=== PATIENT | female | born 1985 | race Caucasian/White ===

== ENCOUNTER → 2018-09-13 10:23 | Outpatient (CLI) | payer OTHER, MEDICAID, SELFPAY ==
[2018-09-13 10:52] LABS: Add Manual Diff / Slide Review NO; Basophils Percent Auto 0.8 % (0-2); Eosinophils Percent Auto 1.2 % (2-4); Hematocrit 39.5 % (36-46); Hemoglobin 13.3 g/dL (12.0-16.0); Lymphocytes Percent Auto 24.6 % (25-40); Mean Corpuscular HGB Conc 33.8 % (30-36); Mean Corpuscular Hemoglobin 28.9 PG (26-34); Mean Corpuscular Volume 85.5 fL (80-100); Monocytes Percent Auto 4.8 % (3-14); Neutrophils Absolute Auto 4000 /uL (3000-5900); Neutrophils Percent Auto 68.6 % (50-75); Platelet Count 342 X10^3/uL (150-400); Red Blood Cell Count 4.61 X10^6/uL (4.0-5.2); White Blood Cell Count 5.8 X10^3/uL (4.5-11.0)
[2018-09-13 11:19] LABS: HEMOLYSIS < 15 (0-50); Iron 105 ug/dL (37-170)
[2018-09-13 11:29] LABS: Alanine Aminotransferase 76 IU/L (9-52); Albumin 4.5 g/dL (3.5-5.0); Albumin Globulin Ratio 1.5 (1.0-2.8); Alkaline Phosphatase 58 U/L (38-126); Aspartate Aminotransferase 86 IU/L (14-36); BUN Creatinine Ratio 22.5 (6-22); Bilirubin Total 0.6 mg/dL (0.2-1.3); Blood Urea Nitrogen 18 mg/dL (7-17); Calcium 9.4 mg/dL (8.4-10.2); Carbon Dioxide 27 mmol/L (22-32); Chloride 105 mmol/L (98-107); Estimated Glomerular Filt Rate > 60.0 mL/min (>60); Glucose 90 mg/dL (70-100); HEMOLYSIS < 15 (0-50); Potassium 4.6 mmol/L (3.4-5.1); Sodium 143 mmol/L (137-145); Total Protein 7.5 g/dL (6.3-8.2)
[2018-09-13 11:31] LABS: Percent Iron Saturation 28 % (15-50); Total Iron Binding Capacity 381 ug/dL (265-497); Transferrin 309 mg/dL (206-381)
[2018-09-13 11:40] LABS: Free T3, Triiodothyronine Free 2.59 pg/mL (2.77-5.27); Free T4, Direct Thyroxine 0.92 ng/dL (0.78-2.19)
[2018-09-13 11:53] LABS: Thyroid Stimulating Hormone 1.06 uIU/mL (0.47-4.68)
[2018-09-13 12:00] LABS: Ferritin 14.2 ng/mL (6.27-137)
[2018-09-13 12:55] LABS: Vitamin B12 736 pg/mL (239-931)
== END ==
PROVIDERS: PCP Physician Assistant; Visit Provider Physician Assistant
DX: D50.9 Iron deficiency anemia, unspecified (principal); R53.83 Other fatigue
CPT/HCPCS: 36415; 80053; 82607; 82728; 83540; 83550; 84439; 84443; 84481; 85025

== ENCOUNTER → 2018-10-13 20:54 | Outpatient (CLI) | payer OTHER, MEDICAID, SELFPAY | PROVIDERS: PCP Physician Assistant; Visit Provider Physician Assistant | DX: Z20.2 Contact with and (suspected) exposure to infections with a predominantly sexual mode of transmission (principal) | CPT/HCPCS: 87210; 87491; 87591 ==

== ENCOUNTER → 2018-10-20 14:40 | Outpatient (CLI) | payer OTHER, MEDICAID, SELFPAY | PROVIDERS: PCP Physician Assistant; Visit Provider Physician Assistant | DX: K92.1 Melena (principal); R19.7 Diarrhea, unspecified | CPT/HCPCS: 87015; 87045; 87427; 87493; 87899 ==

== ENCOUNTER → 2018-10-22 12:41 | Outpatient (CLI) | payer OTHER, MEDICAID, SELFPAY | PROVIDERS: PCP Physician Assistant; Visit Provider Physician Assistant | DX: Z13.9 Encounter for screening, unspecified (principal) ==

== ENCOUNTER → 2019-07-29 15:55 | Outpatient (CLI) | payer OTHER, MEDICAID, SELFPAY ==
[2019-07-29 20:01] LABS: Urine N gonorrhoeae NOT DETECTED
[2019-07-29 20:18] LABS: Urine Chlamydia NOT DETECTED
== END ==
PROVIDERS: PCP Physician Assistant; Visit Provider Registered Nurse
DX: Z11.3 Encounter for screening for infections with a predominantly sexual mode of transmission (principal)
CPT/HCPCS: 87491; 87591

== ENCOUNTER → 2020-09-14 10:46 | Outpatient (CLI) | payer OTHER, SELFPAY ==
--- NOTE | 2020-09-14 10:47 | DI.US.S_ITS ---
PROCEDURE: US PELVIC COMPLETE INDICATIONS: iud device; hirustism/hormonal change? TECHNIQUE: Real-time scanning was performed of the pelvic organs, with image documentation. Additional endovaginal scanning was necessary due to incomplete visualization of the adnexal and endometrial structures by transabdominal scanning. COMPARISON: None. FINDINGS: Transabdominal scanning: Limited scanning through the kidneys shows no hydronephrosis. No pathologic free abdominal or pelvic fluid. Endovaginal scanning: Uterus: Uterus is normal in size at 9.7 x 4.9 x 6.4 cm. The endometrium measures 5 mm in combined thickness. An IUD is seen at its expected location. Ovaries: The right ovary measures 3.7 x 3.1 x 3.2 cm. The left ovary measures 3.2 x 1.9 x 1.9 cm. The ovaries have a normal sonographic appearance. No adnexal masses are seen. A normal appearing arterial waveform is confirmed to the left ovary. IMPRESSION: Normal appearing IUD. No significant ovarian abnormality is seen. Dictated by: Oziel Morales M.D. on 09/14/2020 at 10:54 Approved by: Oziel Morales M.D. on 09/14/2020 at 10:57
== END ==
PROVIDERS: PCP Registered Nurse; Referring Provider Registered Nurse; Visit Provider Registered Nurse
DX: L68.0 Hirsutism (principal); Z97.5 Presence of (intrauterine) contraceptive device
CPT/HCPCS: 76830; 76856

== ENCOUNTER → 2020-09-21 13:43 | Outpatient (CLI) | payer OTHER, SELFPAY ==
[2020-09-21 14:43] LABS: Cholesterol 165 mg/dL (140-199); HDL Cholesterol 56 mg/dL (40-60); LDL Cholesterol Calculated 81 mg/dL (<100); Triglycerides 138 mg/dL (35-150)
[2020-09-22 07:08] LABS: RPR Screen Non Reactive (Non Reactive)
[2020-09-22 09:10] LABS: HBsAg Screen Negative (Negative); Hepatitis A Antibody IgM Negative (Negative); Hepatitis B Core Antibody IgM Negative (Negative); Hepatitis C Antibody <0.1 s/co ratio (0.0-0.9)
[2020-09-23 17:23] LABS: HIV 1 & 2 Ab/Ag 4th Gen Combo NEGATIVE (NEGATIVE)
== END ==
PROVIDERS: PCP Registered Nurse; Referring Provider Registered Nurse; Visit Provider Registered Nurse
DX: Z00.00 Encounter for general adult medical examination without abnormal findings (principal); Z11.3 Encounter for screening for infections with a predominantly sexual mode of transmission; Z30.40 Encounter for surveillance of contraceptives, unspecified; Z82.49 Family history of ischemic heart disease and other diseases of the circulatory system
CPT/HCPCS: 36415; 80061; 80074; 86592; 86696; 87389

== ENCOUNTER → 2020-10-24 17:02 | Outpatient (CLI) | payer OTHER, SELFPAY ==
[2020-10-24 17:40] LABS: COVID19 -Nasal RAPID Negative (Negative)
== END ==
PROVIDERS: PCP Registered Nurse; Visit Provider Student in an Organized Health Care Education/Training Program
DX: Z11.59 Encounter for screening for other viral diseases (principal)
CPT/HCPCS: 87635

== ENCOUNTER → 2022-11-18 14:19 | Outpatient (ROUT) | payer SELFPAY | PROVIDERS: Visit Provider Dermatology | DX: E65 Localized adiposity (principal) | CPT/HCPCS: 87070; 87075; 87077; 87147; 87185; 87186; 87205 ==

== ENCOUNTER → 2023-02-24 17:06 | Outpatient (ROUT) | payer OTHER, SELFPAY | PROVIDERS: Visit Provider Dermatology | DX: T81.89XA Other complications of procedures, not elsewhere classified, initial encounter (principal) | CPT/HCPCS: 87070; 87075; 87077; 87147; 87186; 87205 ==

== ENCOUNTER 2024-11-28 06:04 | Observation (INO) | payer BC, SELFPAY ==
[2024-11-28] VITALS (17 sets, daily range): BP systolic 97–137; BP diastolic 54–79; PULSE 57–102; RESP 12–21; TEMP 36.1–37.4; O2SAT 95–100; BMI 30.1
--- NOTE | 2024-11-28 | PATH_ITS ---
[facility] Accession Number: [id number] No. of containers..01 Tissue . 01 Material submitted: . appendix - APPENDIX . 01 Diagnosis: APPENDIX, APPENDECTOMY: Acute appendicitis with serositis. No evidence of neoplasm. [facility] 12/02/2024 1035 Local . 01 Electronically signed: . Gabriel Tony MD, PhD, Pathologist NPI- [id number] . 01 Gross description: . Received in formalin with two patient identifiers and appendix, is a fuentes, vermiform appendix, 6.6 cm in length by 0.9 cm in diameter, with fuentes, roughened serosa with adherent material consistent with exudate. The mesoappendix extends out to 2.9 cm. The margin is inked blue, and sectioning reveals a patent lumen filled with brown semisolid material that ranges from 0.3-0.6 cm in diameter. The pérez average 0.2 cm thick with no perforation or lesions identified. Lunchroom Monitor sections to include one-half of the bisected distal tip, margin, and cross section are submitted in A1. ([id number]) /MRV 12/01/2024 1526 Local . 01 Pathologist provided ICD-10: K35.80 . 01 CPT . 950712 Performed at: [address], [place], [place] [id number] MD Abel Miller MD Phone: [phone]
--- NOTE | 2024-11-28 06:24 | ED_ITS ---
HPI - Abdominal Pain <Judi Cox DO - Last Filed: 11/29/24 04:28> General Chief Complaint: Abdominal Pain Stated Complaint: abd pain Time Seen by Provider: 11/28/24 06:24 Source: patient, RN notes reviewed and old records reviewed Mode of arrival: Ambulatory Limitations: no limitations History of Present Illness HPI narrative: 39-year-old female presents with complaint of abdominal pain which he describes more suprapubic and right lower quadrant. Patient is started he had symptoms yesterday morning. States she ate some food started to have some nausea vomiting and cramping threw up several times developed persistent abdominal pain that is sort of waxed and waned in intensity. Has not had any persistent vomiting today. No fevers. She has had some nausea but no persistent vomiting. She states she did have 3 bowel movements earlier yesterday that were formed. Patient states no black or bloody stools. No dysuria, urgency or frequency. Denies any vaginal bleeding or discharge. Does note she has not IUD in place. Patient states she was not sexually active. Patient states no daily prescription medications. Denies any abdominal surgeries. Allergic to sulfa. Former smoker. No regular alcohol, no recreational drugs. Related Data Home Medications Medication Instructions Recorded Confirmed No Known Home Medications 11/28/24 11/28/24 Allergies Allergy/AdvReac Type Severity Reaction Status Date / Time Sulfa (Sulfonamide Allergy Mild HIVES Verified 11/28/24 06:15 Antibiotics) [SULFA (SULFONAMIDE ANTIBIOTICS)] egg [EGG] AdvReac Intermediate RINGING Verified 11/28/24 06:15 IN MY EARS, STAPH INFECTION Review of Systems <Judi Cox DO - Last Filed: 11/29/24 04:28> Review of Systems ROS Unobtainable: All systems reviewed & are unremarkable except as noted in HPI and below Patient History <Judi Cox DO - Last Filed: 11/29/24 04:28> Medical History Gestational diabetes Family History Father Age: 76 Type II diabetes mellitus Atrial fibrillation Mother Age: 68 Asthma Sister No problems noted. Sister No problems noted. Social History household members: family Smoking Status: Former smoker Tobacco: How many years used: 5 second hand exposure: No alcohol intake: current substance use type: marijuana Smoking Status: Former smoker Exam <Judi Cox DO - Last Filed: 11/29/24 04:28> Narrative Exam Narrative: GENERAL: Alert and oriented x three, female in mild distress HEENT: Head normocephalic, atraumatic, EOMI, pupils reactive, face symmetric, moist mucous membranes NECK: Supple, full range of motion CARDIOVASCULAR: Regular rate and rhythm without murmurs, rubs or gallops. RESPIRATORY: Breath sounds equal bilaterally, no wheezes rales or rhonchi. ABDOMEN: Soft, patient has suprapubic tenderness with some very mild right lower quadrant tenderness. Normoactive bowel sounds all 4 quadrants. No guarding or rebound, rigidity, no mass : No CVA tenderness bilaterally EXTREMITIES: Normal range of motion, no clubbing or edema. Neurovascularly intact NEUROLOGICAL: Cranial nerves II through XII grossly intact. Moving all extremities SKIN: Warm, dry, no petechiae, no rashes or lesions. Initial Vital Signs Initial Vital Signs: Vital Signs Temperature 98.0 F 11/28/24 06:12 Pulse Rate 65 11/28/24 06:12 Respiratory Rate 16 11/28/24 06:12 Blood Pressure 137/73 11/28/24 06:12 Pulse Oximetry 98 11/28/24 06:12 Oxygen Delivery Method Room Air 11/28/24 06:12 <Nya Hernandez DO - Last Filed: 11/28/24 09:56> Initial Vital Signs Initial Vital Signs: Vital Signs Temperature 98.0 F 11/28/24 06:12 Pulse Rate 65 11/28/24 06:12 Respiratory Rate 16 11/28/24 06:12 Blood Pressure 137/73 11/28/24 06:12 Pulse Oximetry 98 11/28/24 06:12 Oxygen Delivery Method Room Air 11/28/24 06:12 Course <Judi Cox DO - Last Filed: 11/29/24 04:28> Orders Ordered: Acetaminophen (Acetaminophen 325 Mg Tablet) 650 mg PO Q6H PRN PRN Reason: Fever/Mild Pain (1-3) Hydrocodone Bitart/Acetaminophen (Hydrocodone/Acet 5/325 Tablet) 1 tab PO Q4H PRN PRN Reason: Pain, Moderate (4-6) Hydrocodone Bitart/Acetaminophen (Hydrocodone/Acet 5/325 Tablet) 2 tab PO Q4H PRN PRN Reason: Pain, Severe (7-10) Fentanyl (Fentanyl 100 Mcg/2 Ml Inj) 0 mcg IV Q5MIN PRN PRN Reason: Pain, Severe (7-10) Fentanyl (Fentanyl 100 Mcg/2 Ml Inj) 0 mcg IV Q5M PRN PRN Reason: Pain, Moderate (4-6) Hydromorphone HCl (Hydromorphone 0.5 Mg Inj) 0.5 mg IV Q2H PRN PRN Reason: Pain, Severe (7-10) Last Admin: 11/28/24 12:17 Dose: 0.5 mg Documented By: TRINH Hydromorphone HCl (Hydromorphone 1 Mg Inj) 0 mg IV Q5MIN PRN PRN Reason: Pain, Mild (1-3) Hydroxyzine HCl (Hydroxyzine 50 Mg/Ml Inj) 25 mg IM NOW PRN PRN Reason: Pain, Mild (1-3) Piperacillin Sod/Tazobactam (Sod 3.375 gm/ Sodium Chloride) 100 mls @ 25 mls/hr IV Q8H [facility] Last Admin: 11/29/24 00:20 Dose: 25 mls/hr Documented By: Infusion: 11/28/24 20:14 Dose: Infused Documented By: Admin: 11/28/24 17:10 Dose: 25 mls/hr Documented By: TRINH Sodium Chloride (Normal Saline 0.9%) 1,000 mls @ 100 mls/hr IV CONT [facility] Last Admin: 11/28/24 13:36 Dose: 100 mls/hr Documented By: TRINH Ibuprofen (Ibuprofen 600 Mg Tablet) 600 mg PO Q6H PRN PRN Reason: Fever/Mild Pain (1-3) Meperidine HCl (Meperidine 50 Mg/Ml Inj) 12.5 mg IV PACUNOW PRN PRN Reason: Mild pain or shivering Last Admin: 11/28/24 20:10 Dose: 12.5 mg Documented By: Naloxone HCl (Naloxone 0.4 Mg/Ml Vial) 0.2 mg IV Q2MIN PRN PRN Reason: Opiate Reversal Ondansetron HCl (Ondansetron 4 Mg/2 Ml Inj) 4 mg IV NOW PRN PRN Reason: Nausea And Vomiting Last Admin: 11/28/24 12:24 Dose: 4 mg Documented By: Admin: 11/28/24 06:45 Dose: 4 mg Documented By: DALILA Ondansetron HCl (Ondansetron 4 Mg/2 Ml Inj) 4 mg IV Q8HR PRN PRN Reason: Nausea And Vomiting Ondansetron HCl (Ondansetron 4 Mg/2 Ml Inj) 4 mg IV NOW PRN PRN Reason: Nausea And Vomiting Oxycodone HCl (Oxycodone Ir 5 Mg Tablet) 5 mg PO PACUNOW PRN PRN Reason: Mild or moderate pain Discontinued Medications Bupivacaine HCl/Epinephrine Bitart (Bupivacaine 0.5% W/ Epi (Pf) 30 Ml Vial) 30 ml INJ NOW ONE Stop: 11/28/24 19:32 Last Admin: 11/28/24 19:32 Dose: 30 ml Documented By: Piperacillin Sod/Tazobactam (Sod 4.5 gm/ Sodium Chloride) 100 mls @ 200 mls/hr IV NOW ONE Stop: 11/28/24 08:41 Last Infusion: 11/28/24 09:40 Dose: Infused Documented By: Admin: 11/28/24 09:03 Dose: 200 mls/hr Documented By: AURA Lactated Ringer's (Lactated Ringers) 1,000 mls @ 100 mls/hr IV CONT [facility] Last Admin: 11/28/24 19:49 Dose: 100 mls/hr Documented By: Admin: 11/28/24 13:37 Dose: Not Given Documented By: TRINH Piperacillin Sod/Tazobactam (Sod 3.375 gm/ Sodium Chloride) 100 mls @ 25 mls/hr IV Q8H [facility] Last Admin: 11/28/24 13:37 Dose: Not Given Documented By: TRINH Ketorolac Tromethamine (Ketorolac 30 Mg/Ml Vial) 15 mg IV NOW ONE Stop: 11/28/24 06:38 Last Admin: 11/28/24 06:45 Dose: 15 mg Documented By: DALILA Meperidine HCl (Meperidine 50 Mg/Ml Inj) 25 mg IV Q4H PRN PRN Reason: Pain, Severe (7-10) Ondansetron HCl (Ondansetron 4 Mg Odt) 4 mg PO NOW PRN PRN Reason: Nausea And Vomiting Vital Signs Vital signs: Vital Signs - 8 hr 11/28/24 06:12 Temperature 98.0 F Pulse Rate 65 Respiratory Rate 16 Blood Pressure 137/73 Pulse Oximetry 98 Oxygen Delivery Method Room Air <Nya DO David - Last Filed: 11/28/24 09:56> Orders Ordered: Acetaminophen (Acetaminophen 325 Mg Tablet) 650 mg PO Q6H PRN PRN Reason: Fever/Mild Pain (1-3) Hydrocodone Bitart/Acetaminophen (Hydrocodone/Acet 5/325 Tablet) 1 tab PO Q4H PRN PRN Reason: Pain, Moderate (4-6) Hydrocodone Bitart/Acetaminophen (Hydrocodone/Acet 5/325 Tablet) 2 tab PO Q4H PRN PRN Reason: Pain, Severe (7-10) Fentanyl (Fentanyl 100 Mcg/2 Ml Inj) 0 mcg IV Q5MIN PRN PRN Reason: Pain, Severe (7-10) Fentanyl (Fentanyl 100 Mcg/2 Ml Inj) 0 mcg IV Q5M PRN PRN Reason: Pain, Moderate (4-6) Hydromorphone HCl (Hydromorphone 0.5 Mg Inj) 0.5 mg IV Q2H PRN PRN Reason: Pain, Severe (7-10) Last Admin: 11/28/24 12:17 Dose: 0.5 mg Documented By: TRINH Hydromorphone HCl (Hydromorphone 1 Mg Inj) 0 mg IV Q5MIN PRN PRN Reason: Pain, Mild (1-3) Hydroxyzine HCl (Hydroxyzine 50 Mg/Ml Inj) 25 mg IM NOW PRN PRN Reason: Pain, Mild (1-3) Piperacillin Sod/Tazobactam (Sod 3.375 gm/ Sodium Chloride) 100 mls @ 25 mls/hr IV Q8H [facility] Last Admin: 11/29/24 00:20 Dose: 25 mls/hr Documented By: Infusion: 11/28/24 20:14 Dose: Infused Documented By: Admin: 11/28/24 17:10 Dose: 25 mls/hr Documented By: TRINH Sodium Chloride (Normal Saline 0.9%) 1,000 mls @ 100 mls/hr IV CONT [facility] Last Admin: 11/28/24 13:36 Dose: 100 mls/hr Documented By: TRINH Ibuprofen (Ibuprofen 600 Mg Tablet) 600 mg PO Q6H PRN PRN Reason: Fever/Mild Pain (1-3) Meperidine HCl (Meperidine 50 Mg/Ml Inj) 12.5 mg IV PACUNOW PRN PRN Reason: Mild pain or shivering Last Admin: 11/28/24 20:10 Dose: 12.5 mg Documented By: YI Naloxone HCl (Naloxone 0.4 Mg/Ml Vial) 0.2 mg IV Q2MIN PRN PRN Reason: Opiate Reversal Ondansetron HCl (Ondansetron 4 Mg/2 Ml Inj) 4 mg IV NOW PRN PRN Reason: Nausea And Vomiting Last Admin: 11/28/24 12:24 Dose: 4 mg Documented By: Admin: 11/28/24 06:45 Dose: 4 mg Documented By: DALILA Ondansetron HCl (Ondansetron 4 Mg/2 Ml Inj) 4 mg IV Q8HR PRN PRN Reason: Nausea And Vomiting Ondansetron HCl (Ondansetron 4 Mg/2 Ml Inj) 4 mg IV NOW PRN PRN Reason: Nausea And Vomiting Oxycodone HCl (Oxycodone Ir 5 Mg Tablet) 5 mg PO PACUNOW PRN PRN Reason: Mild or moderate pain Discontinued Medications Bupivacaine HCl/Epinephrine Bitart (Bupivacaine 0.5% W/ Epi (Pf) 30 Ml Vial) 30 ml INJ NOW ONE Stop: 11/28/24 19:32 Last Admin: 11/28/24 19:32 Dose: 30 ml Documented By: Piperacillin Sod/Tazobactam (Sod 4.5 gm/ Sodium Chloride) 100 mls @ 200 mls/hr IV NOW ONE Stop: 11/28/24 08:41 Last Infusion: 11/28/24 09:40 Dose: Infused Documented By: Admin: 11/28/24 09:03 Dose: 200 mls/hr Documented By: AURA Lactated Ringer's (Lactated Ringers) 1,000 mls @ 100 mls/hr IV CONT [facility] Last Admin: 11/28/24 19:49 Dose: 100 mls/hr Documented By: Admin: 11/28/24 13:37 Dose: Not Given Documented By: TRINH Piperacillin Sod/Tazobactam (Sod 3.375 gm/ Sodium Chloride) 100 mls @ 25 mls/hr IV Q8H [facility] Last Admin: 11/28/24 13:37 Dose: Not Given Documented By: TRINH Ketorolac Tromethamine (Ketorolac 30 Mg/Ml Vial) 15 mg IV NOW ONE Stop: 11/28/24 06:38 Last Admin: 11/28/24 06:45 Dose: 15 mg Documented By: DALILA Meperidine HCl (Meperidine 50 Mg/Ml Inj) 25 mg IV Q4H PRN PRN Reason: Pain, Severe (7-10) Ondansetron HCl (Ondansetron 4 Mg Odt) 4 mg PO NOW PRN PRN Reason: Nausea And Vomiting Vital Signs Vital signs: Vital Signs - 8 hr 11/28/24 06:12 Temperature 98.0 F Pulse Rate 65 Respiratory Rate 16 Blood Pressure 137/73 Pulse Oximetry 98 Oxygen Delivery Method Room Air MDM - Abdominal Pain <Judi Cox, - Last Filed: 11/29/24 04:28> Lab Data 11/28/24 06:25 11/28/24 06:25 Labs: Lab Results 11/28/24 Range/Units 06:25 WBC 18.3 H (4.5-11.0) X10^3/uL RBC 4.69 (4.0-5.2) X10^6/uL Hgb 14.1 (12.0-16.0) g/dL Hct 40.9 (36-46) % MCV 87.2 (80-100) fL MCH 30.0 (26-34) PG MCHC 34.4 (30-36) % RDW 13.2 (11.6-14.8) % Plt Count 282 (150-400) X10^3/uL Neut % (Auto) 88.1 H (50-75) % Lymph % (Auto) 6.7 L (25-40) % Ellis % (Auto) 4.6 (3-14) % Eos % (Auto) 0.3 L (2-4) % Baso % (Auto) 0.3 (0-2) % Neut # (Auto) 12936 H (8612-7704) /uL Lymph # (Auto) 1200 (3923-7869) /uL Ellis # (Auto) 800 (0-900) /uL Eos # (Auto) 100 (0-450) /uL Baso # (Auto) 0 (0-100) /uL Sodium 135 L (137-145) mmol/L Potassium 3.9 (3.4-5.1) mmol/L Chloride 105 (98-107) mmol/L Carbon Dioxide 21 L (22-32) mmol/L BUN 8 (7-17) mg/dL Creatinine 0.71 (0.52-1.04) mg/dL Estimated GFR > 60 (>60) mL/min BUN/Creatinine Ratio 11.3 (6-22) Glucose 116 H (70-100) mg/dL Calcium 9.0 (8.4-10.2) mg/dL Total Bilirubin 0.7 (0.2-1.3) mg/dL AST 54 H (14-36) IU/L ALT 131 H (<35) IU/L Alkaline Phosphatase 94 (38-126) U/L Total Protein 7.7 (6.3-8.2) g/dL Albumin 4.5 (3.5-5.0) g/dL Globulin 3.2 (1.7-4.1) g/dL Albumin/Globulin Ratio 1.4 (1.0-2.8) Lipase 63 (23-300) U/L Point of care testing: Point of Care Testing Test Results Negative Urine Dip Bedside Urine Glucose Negative Bedside Urine Bilirubin - Negative Bedside Urine Ketone - Negative Urine Specific [place] 1.015 Bedside Urine Occult Blood +/- Bedside Urine pH 7.0 Bedside Urine Protein - Negative Bedside Urine Urobilinogen - Negative Bedside Urine Nitrite - Negative Bedside Urine Leukocytes - Negative Esterase MDM Narrative Medical decision making narrative: Overall well-appearing female has some very mild suprapubic tenderness and slight right lower quadrant on exam. Vitals are overall stable. Patient has a white count of 18.3 hemoglobin of 14 platelets of 282. CMP pending. Point of care urine and are negative. Pelvic ultrasound right lower quadrant ultrasound ordered. Patient received Toradol. Dr. Hernandez patient signed out to me by Dr. Cox I have seen evaluated patient myself. She does have some mild suprapubic tenderness but is doing better after Toradol. She is significant leukocytosis of 18.3. Ultrasound does show mild left ovarian cyst appendix not seen. Decision to do CT scan. CT confirms acute appendicitis. Dr. Mckeon updated patient's symptoms test results agrees to admission surgery will likely be early this evening agrees with [facility] <Nya David, DO - Last Filed: 11/28/24 09:56> Lab Data Labs: Lab Results 11/28/24 Range/Units 06:25 WBC 18.3 H (4.5-11.0) X10^3/uL RBC 4.69 (4.0-5.2) X10^6/uL Hgb 14.1 (12.0-16.0) g/dL Hct 40.9 (36-46) % MCV 87.2 (80-100) fL MCH 30.0 (26-34) PG MCHC 34.4 (30-36) % RDW 13.2 (11.6-14.8) % Plt Count 282 (150-400) X10^3/uL Neut % (Auto) 88.1 H (50-75) % Lymph % (Auto) 6.7 L (25-40) % Ellis % (Auto) 4.6 (3-14) % Eos % (Auto) 0.3 L (2-4) % Baso % (Auto) 0.3 (0-2) % Neut # (Auto) 47215 H (5823-1780) /uL Lymph # (Auto) 1200 (2300-8516) /uL Ellis # (Auto) 800 (0-900) /uL Eos # (Auto) 100 (0-450) /uL Baso # (Auto) 0 (0-100) /uL Sodium 135 L (137-145) mmol/L Potassium 3.9 (3.4-5.1) mmol/L Chloride 105 (98-107) mmol/L Carbon Dioxide 21 L (22-32) mmol/L BUN 8 (7-17) mg/dL Creatinine 0.71 (0.52-1.04) mg/dL Estimated GFR > 60 (>60) mL/min BUN/Creatinine Ratio 11.3 (6-22) Glucose 116 H (70-100) mg/dL Calcium 9.0 (8.4-10.2) mg/dL Total Bilirubin 0.7 (0.2-1.3) mg/dL AST 54 H (14-36) IU/L ALT 131 H (<35) IU/L Alkaline Phosphatase 94 (38-126) U/L Total Protein 7.7 (6.3-8.2) g/dL Albumin 4.5 (3.5-5.0) g/dL Globulin 3.2 (1.7-4.1) g/dL Albumin/Globulin Ratio 1.4 (1.0-2.8) Lipase 63 (23-300) U/L Point of care testing: Point of Care Testing Test Results Negative Urine Dip Bedside Urine Glucose Negative Bedside Urine Bilirubin - Negative Bedside Urine Ketone - Negative Urine Specific [place] 1.015 Bedside Urine Occult Blood +/- Bedside Urine pH 7.0 Bedside Urine Protein - Negative Bedside Urine Urobilinogen - Negative Bedside Urine Nitrite - Negative Bedside Urine Leukocytes - Negative Esterase Imaging Data CT scan - abdomen/pelvis: Radiologist's Impression: PROCEDURE: CT ABDOMEN PELVIS W CON INDICATIONS: lower ab pain with high wbx TECHNIQUE: After the administration of intravenous contrast, axial sections acquired from the lung bases to the pubic symphysis. Coronal and sagittal reformats were performed. For radiation dose reduction, the following was used: automated exposure control, adjustment of mA and/or kV according to patient size. COMPARISON: None. FINDINGS: Image quality: Diagnostic. Lower Chest: No significant findings. ABDOMEN: Liver: No solid mass. Gallbladder: No radiopaque gallstones or wall thickening. Biliary ducts: No biliary dilation. Pancreas: No ductal dilation. Spleen: Size is within normal limits. Adrenal Glands: No adrenal nodules. Kidneys and Ureters: No hydronephrosis. No solid mass. No complex renal cystic lesion which requires follow up. Stomach and Bowel: Normal colonic caliber, without significant wall thickening. Findings are suggestive of acute appendicitis. There is high density at the base. There is approximately 50% that has air within it, with an appearance consistent with likely feculent material. The 40% extending to the tip is fluid-filled and enhancing and dilated. Findings likely represent acute appendicitis. Peritoneum: No abnormal intraperitoneal fluid. No free air. Ventral Wall: No significant ventral hernia. Abdominal Nodes: No retroperitoneal or mesenteric adenopathy by size criteria. Vessels: Aorta and inferior vena cava are normal in size. PELVIS: Pelvic Organs: IUD in the uterus. Mild free pelvic fluid. Fluid may be physiologic.. Bladder: No bladder wall thickening, accounting for underdistention. Pelvic Nodes: No enlarged lymph nodes. Miscellaneous: No inguinal hernias are seen. Bones: No aggressive osseous abnormality. IMPRESSION: Findings likely represent acute appendicitis. Comment: Findings were discussed with Dr. Hernandez on 11/28/2024 at 0811 hours Dictated by: Дмитрий Lora M.D. on 11/28/2024 at 8:18 US - RECRUITMENT SPECIALIST: Radiologist's Impression: PROCEDURE: US PELVIC COMPLETE INDICATIONS: RLQ/suprapubic pain, ovarian torsion vs appy TECHNIQUE: Real-time scanning was performed of the pelvic organs, with image documentation. Additional endovaginal scanning was necessary due to incomplete visualization of the adnexal and endometrial structures by transabdominal scanning. COMPARISON: [facility], , US PELVIC COMPLETE, 09/14/2020, 10:57. FINDINGS: Uterus: Uterus is anteverted and normal in size at 10.4 x 5.2 x 6.1 cm. The myometrium is homogeneous. The endometrium measures 6.8 mm combined thickness. Intrauterine device in place. Ovaries: The right ovary measures 2.8 x 3.0 x 2.3 cm, with a calculated ovarian volume of 10.1 cc. The left ovary measures 3.2 x 3.2 x 2.2 cm, with a calculated ovarian volume of 11.8 cc. Simple left ovarian cyst measuring 2.6 x 1.8 x 2.3 cm. The ovaries have a normal sonographic appearance and normal vascularity. Less than 12 follicles can be seen in each ovary. No adnexal masses are seen. Other: No pathologic free abdominal or pelvic fluid. The appendix is not seen. IMPRESSION: Normal appearance of the uterus and ovaries. No cause for patient's pain is identified. The appendix is not seen. We strive to produce accurate, complete, and clear reports of imaging services. To assist us in improving patient care, this report was composed using standard report templates and voice recognition software. Therefore, it may contain abnormal punctuation, insertions and/or omissions. Occasional wrong-word or sound-alike substitutions may occur. Though we review the report and make efforts to correct it, we do recommend that the report be read carefully in proper context to recognize any text inaccuracies. Dictated by: Rk Kaminski M.D. on 11/28/2024 at 8:10 Approved by: Rk Kaminski M.D. on 11/28/2024 at 8:1 [facility] Narrative Medical decision making narrative: Overall well-appearing female has some very mild suprapubic tenderness and slight right lower quadrant on exam. Vitals are overall stable. Patient has a white count of 18.3 hemoglobin of 14 platelets of 282. CMP Point of care urine and are negative. Pelvic ultrasound right lower quadrant ultrasound Patient received Toradol Dr. Hernandez patient signed out to me by Dr. Cox I have seen evaluated patient myself. She does have some mild suprapubic tenderness but is doing better after Toradol. She is significant leukocytosis of 18.3. Ultrasound does show mild left ovarian cyst appendix not seen. Decision to do CT scan. CT confirms acute appendicitis. Dr. Mckeon updated patient's symptoms test results agrees to admission surgery will likely be early this evening agrees with [facility] Discharge Plan Departure Patient Disposition: Admitted as Observation Clinical Impression: Acute appendicitis Qualifiers: Acute appendicitis type: with localized peritonitis Appendicitis gangrene presence: without gangrene Appendicitis perforation presence: without perforation Appendicitis abscess presence: without abscess Qualified Code(s): K 35.30 - Acute appendicitis with localized peritonitis, without perforation or gangrene Admit Date/Time: 11/28/24 08:41 Admit Provider: Renaldo Mckeon
--- NOTE | 2024-11-28 06:37 | DI.US.S_ITS ---
PROCEDURE: US PELVIC COMPLETE INDICATIONS: RLQ/suprapubic pain, ovarian torsion vs appy TECHNIQUE: Real-time scanning was performed of the pelvic organs, with image documentation. Additional endovaginal scanning was necessary due to incomplete visualization of the adnexal and endometrial structures by transabdominal scanning. COMPARISON: [facility], , US PELVIC COMPLETE, 09/14/2020, 10:57. FINDINGS: Uterus: Uterus is anteverted and normal in size at 10.4 x 5.2 x 6.1 cm. The myometrium is homogeneous. The endometrium measures 6.8 mm combined thickness. Intrauterine device in place. Ovaries: The right ovary measures 2.8 x 3.0 x 2.3 cm, with a calculated ovarian volume of 10.1 cc. The left ovary measures 3.2 x 3.2 x 2.2 cm, with a calculated ovarian volume of 11.8 cc. Simple left ovarian cyst measuring 2.6 x 1.8 x 2.3 cm. The ovaries have a normal sonographic appearance and normal vascularity. Less than 12 follicles can be seen in each ovary. No adnexal masses are seen. Other: No pathologic free abdominal or pelvic fluid. The appendix is not seen. IMPRESSION: Normal appearance of the uterus and ovaries. No cause for patient's pain is identified. The appendix is not seen. We strive to produce accurate, complete, and clear reports of imaging services. To assist us in improving patient care, this report was composed using standard report templates and voice recognition software. Therefore, it may contain abnormal punctuation, insertions and/or omissions. Occasional wrong-word or sound-alike substitutions may occur. Though we review the report and make efforts to correct it, we do recommend that the report be read carefully in proper context to recognize any text inaccuracies. Dictated by: Rk Kaminski M.D. on 11/28/2024 at 8:10 Approved by: Rk Kaminski M.D. on 11/28/2024 at 8:12
[2024-11-28 06:39] LABS: Add Manual Diff / Slide Review NO; Basophils Absolute Auto 0 /uL (0-100); Basophils Percent Auto 0.3 % (0-2); Eosinophils Absolute Auto 100 /uL (0-450); Eosinophils Percent Auto 0.3 % (2-4); Hematocrit 40.9 % (36-46); Hemoglobin 14.1 g/dL (12.0-16.0); Lymphocytes Absolute Auto 1200 /uL (1100-4500); Lymphocytes Percent Auto 6.7 % (25-40); Mean Corpuscular HGB Conc 34.4 % (30-36); Mean Corpuscular Volume 87.2 fL (80-100); Monocytes Absolute Auto 800 /uL (0-900); Monocytes Percent Auto 4.6 % (3-14); Neutrophils Absolute Auto 16200 /uL (1500-7000); Neutrophils Percent Auto 88.1 % (50-75); Platelet Count 282 X10^3/uL (150-400); Red Blood Cell Count 4.69 X10^6/uL (4.0-5.2); Red Cell Distribution Width 13.2 % (11.6-14.8); White Blood Cell Count 18.3 X10^3/uL (4.5-11.0)
[2024-11-28] MEDS: KETOROLAC 30 MG/ML VIAL 15 MG IV (06:45)
[2024-11-28] MEDS: ONDANSETRON 4 MG/2 ML INJ IV ×2 (06:45→12:24)
[2024-11-28 06:52] LABS: Alanine Aminotransferase 131 IU/L (<35); Albumin 4.5 g/dL (3.5-5.0); Albumin Globulin Ratio 1.4 (1.0-2.8); Alkaline Phosphatase 94 U/L (38-126); Aspartate Aminotransferase 54 IU/L (14-36); BUN Creatinine Ratio 11.3 (6-22); Bilirubin Total 0.7 mg/dL (0.2-1.3); Blood Urea Nitrogen 8 mg/dL (7-17); Carbon Dioxide 21 mmol/L (22-32); Chloride 105 mmol/L (98-107); Estimated Glomerular Filt Rate > 60 mL/min (>60); Globulin 3.2 g/dL (1.7-4.1); Glucose 116 mg/dL (70-100); HEMOLYSIS < 15 (0-50); Lipase 63 U/L (23-300); Potassium 3.9 mmol/L (3.4-5.1); Sodium 135 mmol/L (137-145); Total Protein 7.7 g/dL (6.3-8.2)
--- NOTE | 2024-11-28 07:27 | DI.CT.S_ITS ---
PROCEDURE: CT ABDOMEN PELVIS W CON INDICATIONS: lower ab pain with high wbx TECHNIQUE: After the administration of intravenous contrast, axial sections acquired from the lung bases to the pubic symphysis. Coronal and sagittal reformats were performed. For radiation dose reduction, the following was used: automated exposure control, adjustment of mA and/or kV according to patient size. COMPARISON: None. FINDINGS: Image quality: Diagnostic. Lower Chest: No significant findings. ABDOMEN: Liver: No solid mass. Gallbladder: No radiopaque gallstones or wall thickening. Biliary ducts: No biliary dilation. Pancreas: No ductal dilation. Spleen: Size is within normal limits. Adrenal Glands: No adrenal nodules. Kidneys and Ureters: No hydronephrosis. No solid mass. No complex renal cystic lesion which requires follow up. Stomach and Bowel: Normal colonic caliber, without significant wall thickening. Findings are suggestive of acute appendicitis. There is high density at the base. There is approximately 50% that has air within it, with an appearance consistent with likely feculent material. The 40% extending to the tip is fluid-filled and enhancing and dilated. Findings likely represent acute appendicitis. Peritoneum: No abnormal intraperitoneal fluid. No free air. Ventral Wall: No significant ventral hernia. Abdominal Nodes: No retroperitoneal or mesenteric adenopathy by size criteria. Vessels: Aorta and inferior vena cava are normal in size. PELVIS: Pelvic Organs: IUD in the uterus. Mild free pelvic fluid. Fluid may be physiologic.. Bladder: No bladder wall thickening, accounting for underdistention. Pelvic Nodes: No enlarged lymph nodes. Miscellaneous: No inguinal hernias are seen. Bones: No aggressive osseous abnormality. IMPRESSION: Findings likely represent acute appendicitis. Comment: Findings were discussed with Dr. Hernandez on 11/28/2024 at 0811 hours Dictated by: Дмитрий Lora M.D. on 11/28/2024 at 8:18 Approved by: Дмитрий Lora M.D. on 11/28/2024 at 8:21
[2024-11-28] MEDS: PIPERACILLIN/TAZO 4.5 GM in SODIUM CHLORIDE 0.9% 100 ML IV (09:03)
--- NOTE | 2024-11-28 11:27 | PC.NURSE ---
Pt to room 217 via w/c and able to transfer self to bed. Pt denies nausea or shortness of breath. Pt states pain improved with Toradol in the ER but she is worried it is coming back. Oriented to room, call light, bed controls, and tv controls. Pt agrees to call for assistance as needed. No orders yet placed by Dr. Mckeon-called his cell phone and contacted his office to request orders for patient to address pain.
[2024-11-28] MEDS: HYDROMORPHONE 0.5 MG INJ IV (12:17)
--- NOTE | 2024-11-28 13:03 | PM.HP.1 ---
History of Present Illness History of Present Illness Date Patient Seen: 11/28/24 Time Patient Seen: 13:04 Chief complaint: abd pain Narrative: Ceci is a 39-year-old woman who presents with the acute appendicitis. She started to have nausea and abdominal pain about [address] showed likely acute uncomplicated appendicitis. No prior abdominal surgical history. [facility] Medical History Gestational diabetes Family History Father Age: 76 Type II diabetes mellitus Atrial fibrillation Mother Age: 68 Asthma Sister No problems noted. Sister No problems noted. Social History household members: family Smoking Status: Former smoker Tobacco: How many years used: 5 second hand exposure: No alcohol intake: current substance use type: marijuana Meds Home Medications and Allergies Home Medications Medication Instructions Recorded Confirmed Type No Known Home Medications 11/28/24 11/28/24 History Allergies Allergy/AdvReac Type Severity Reaction Status Date / Time Sulfa (Sulfonamide Allergy Mild HIVES Verified 11/28/24 06:15 Antibiotics) [SULFA (SULFONAMIDE ANTIBIOTICS)] egg [EGG] AdvReac Intermediate RINGING Verified 11/28/24 06:15 IN MY EARS, STAPH INFECTION Exam Vital Signs (past 8 hours): - 11/28/24 06:12 11/28/24 09:08 11/28/24 09:09 Temperature 98.0 F Pulse Rate 65 72 65 Respiratory Rate 16 Blood Pressure 137/73 Pulse Oximetry 98 98 98 Oxygen Delivery Method Room Air Room Air Oxygen Flow Rate 11/28/24 09:09 11/28/24 10:10 11/28/24 12:00 Temperature 97.7 F 97.7 F Pulse Rate 66 57 L Respiratory Rate 14 15 Blood Pressure 104/61 110/69 136/79 Pulse Oximetry 99 100 Oxygen Delivery Method Oxygen Flow Rate 0 0 Oxygen Delivery Method Room Air Oxygen Flow Rate 0 Narrative Exam Narrative: Abdomen tender to palpation in the right lower quadrant Objective Labs 11/28/24 06:25 11/28/24 06:25 Labs: Laboratory Results - last 24 hr 11/28/24 06:25 WBC 18.3 H RBC 4.69 Hgb 14.1 Hct 40.9 MCV 87.2 MCH 30.0 MCHC 34.4 RDW 13.2 Plt Count 282 Neut % (Auto) 88.1 H Lymph % (Auto) 6.7 L Caroline % (Auto) 4.6 Eos % (Auto) 0.3 L Baso % (Auto) 0.3 Neut # (Auto) 44771 H Lymph # (Auto) 1200 Caroline # (Auto) 800 Eos # (Auto) 100 Baso # (Auto) 0 Sodium 135 L Potassium 3.9 Chloride 105 Carbon Dioxide 21 L BUN 8 Creatinine 0.71 Estimated GFR > 60 BUN/Creatinine Ratio 11.3 Glucose 116 H Calcium 9.0 Total Bilirubin 0.7 AST 54 H ALT 131 H Alkaline Phosphatase 94 Total Protein 7.7 Albumin 4.5 Globulin 3.2 Albumin/Globulin Ratio 1.4 Lipase 63 Assessment & Plan Assessment and plan (1) Acute appendicitis: Qualifiers: Acute appendicitis type: with localized peritonitis Appendicitis gangrene presence: without gangrene Appendicitis perforation presence: without perforation Appendicitis abscess presence: without abscess Qualified Code(s): K35.30 - Acute appendicitis with localized peritonitis, without perforation or gangrene Status: Acute Plan Discussed the risks benefits and alternatives of laparoscopic appendectomy and she would like to proceed. Time-Based Coding :: [TOTAL MINUTES] spent with patient and on the chart (including review of chart, obtaining history, exam, reviewing outside data, placing orders, documenting exam and treatment plan, and counseling patient) on [DATE]. Quality VTE Deep Vein Thrombosis/Pulmonary Embolism Present on Admission: No
[2024-11-28] MEDS: SODIUM CHLORIDE 0.9% 1,000 ML 100 ML IV (13:36)
[2024-11-28] MEDS: PIPERACILLIN/TAZO 3.375 GM in SODIUM CHLORIDE 0.9% 100 ML IV (17:10)
--- NOTE | 2024-11-28 19:21 | SUR.OPER ---
Supine on padded OR bed, head on pillow, arms secured on padded arm boards at <90 degrees abduction, legs uncrossed, safety belt at thigh, tape over blanket over lower legs.
[2024-11-28] MEDS: BUPIVACAINE 0.5% W/ EPI (PF) 30 ML VIAL INJ (19:32)
[2024-11-28] MEDS: LACTATED RINGERS 1,000 ML 100 ML IV (19:49)
--- NOTE | 2024-11-28 19:50 | PM.OP.1 ---
Operative Date/Time/Diagnoses Date of procedure: 11/28/24 Time of procedure: 19:50 Pre-op diagnosis: Acute appendicitis Post-op diagnosis: same Procedure & Clinicians Procedure: Laparoscopic appendectomy Same procedure as scheduled: Yes Surgeon: Renaldo Mckeon Anesthesia Type: General Operative Notes Procedure in detail: The patient was on IV antibiotics. The patient was brought to the operating room, placed on the table in the supine position and general endotracheal anesthesia was induced. A time-out was performed. The abdomen was prepped and draped in the usual fashion. After injection of local anesthetic a 1 cm infraumbilical incision was created with a 15 blade scalpel. The umbilical stalk was grasped with a Floyd clamp to elevate the abdominal wall. The infraumbilical midline fascia was cleared over 1 cm and the fascia was scored with cautery. The peritoneum was pierced with a Peon clamp. The Toñito port was placed and the abdomen was insufflated to 15 mmHg. The camera was inserted and there was no evidence of any injury from the entry. Next, 5 mm ports were placed in the suprapubic and left lower quadrant positions under direct vision. The patient was placed in Trendelenburg with the right-side elevated. The terminal ileum was swept away from the cecum and the appendix was visualized. The appendix was inflamed and distended but not perforated and there was no evidence of gangrene. The mesoappendix was divided with the Power-seal. Two PDS Endoloops were placed at the base and a 3rd endoloop was placed about a centimeter distally and the appendix was divided sharply. The specimen was placed in a Endo-Catch bag. A small amount of fluid with suctioned from the base of the appendix and pelvis. The table was flattened and the terminal ileum and omentum were allowed to slide in over the appendiceal stump. Finally, the 5 mm ports were removed under direct vision. The pneumoperitoneum was released and the Toñito port was removed followed by the Endo-Catch bag. Additional local was injected into the fascia and the infraumbilical incision was closed with 2 interrupted 2-0 Vicryl sutures. The skin incisions were closed with 4 Monocryl. Steri-Strips were applied followed by Band-Aids. EBL: 5 mL Specimen: Appendix Post-operative Condition: stable Disposition: PACU
[2024-11-28] MEDS: MEPERIDINE 50 MG/ML INJ 12.5 MG IV (20:10)
[2024-11-29] MEDS: PIPERACILLIN/TAZO 3.375 GM in SODIUM CHLORIDE 0.9% 100 ML IV (00:20)
[2024-11-29 08:35] VITALS: BP 110/68; PULSE 68; RESP 18; TEMP 36.2; O2SAT 99
--- NOTE | 2024-11-29 10:06 | PC.NURSE ---
Pt is ready for discharge home with family when they arrive. IV has been removed. Went over d/c instructions with Pt-discussed d/c meds, drink plenty of fluids to prevent constipation or dehydration, no driving while on narcotics, no lifting greater than 20 pounds for 2 weeks, may shower after 24hours, stroke education, s/s of infection, and follow up. Pt denied further questions and will be taken out via w/c by MAINFRAME ARCHITECT to POV with family and all belongings.
--- NOTE | 2024-11-29 11:29 | CM.DANOTE ---
Initial DCP Assessment Visit Note Reviewed EMR and team rounds for status updates. COOLER OPERATOR was unable to meet with pt f/f before she discharged due to triaging needs on the unit. Pt lives independently at baseline with her family in her family's home in [place]. She had no CM d/c assistance needs during her stay. Payor: Amrit Attending: Dr. Mckeon Pt is a 39 year-old F who presented to the ED yesterday with c/o R-lower quadrant abdominal pain, nausea, vomiting, and cramping. Labs showed a high WBC count. CT confirmed acute appendicitis, Surgery was consulted, and the plan was made to start her on IV ABO's, fluids, make NPO and was taken to the OR last evening and completed an appendectomy surgery. She had no postoperative complications, and was discharged home with her family. No further CM needs are indicated at this time. Discharge Planning/Care Management CM Discharge Assessment Start: 11/29/24 11:27 Freq: Status: Active Protocol: Document 11/29/24 11:27 DPL (Rec: 11/29/24 11:29 DPL [id number]) Discharge Planning Assessment Assigned Manager Agency [facility] Advance Directives? No History Provided By Medical Record Expected Length of Stay 1 Has Patient been admitted in last 30 No days? Prior Living Arrangements House Household Members family Type of transporation used prior to Drives own vehicle admit Independent with ADL's Yes Is patient alert and oriented? Yes Comment N/A Caregiver for Another No Comment No identified d/c needs at this time. Barriers to Discharge No Discharge Plan Home Transportation Arrangement Mother Referrals Initiated None needed Comment 11/29/24 Review Status In Process
== END 2024-11-29 11:06 | disposition home or self-care (01) ==
LOC: ED 07:27 → AC 08:57
PROVIDERS: Emergency Medicine; Admitting Provider Surgery; Emergency Provider Emergency Medicine; PCP Naturopath; Referring Provider Emergency Medicine; Visit Provider Surgery
PROC: 0DTJ4ZZ Resection of Appendix, Percutaneous Endoscopic Approach (ICD-10-PCS; CPT 44970; principal; 2024-11-28 18:30)
DX: K35.80 Unspecified acute appendicitis (principal)
CPT/HCPCS: 44970; 36415; 74177; 76830; 76856; 80053; 81003; 81025; 83690; 85025; 93975; 96365; 96375; 99222; 99284; 99285; G0378; J1171; J1885; J2175; J2405; J2543; J2704; J3010; Q9967